=== PATIENT | male | born 1965 | race Caucasian/White ===

== ENCOUNTER 2024-06-19 22:10 | Emergency (ER) | payer BC, OTHER ==
--- NOTE | 2024-06-19 22:48 | EDPHYS ---
Physician Documentation [facility] Name: Forrest Fowler Age: 59 yrs Sex: Male : 1965 Arrival Date: 06/19/2024 Time: 22:10 Bed 4 Private MD: ED Physician Yan Arauz HPI: 06/20 00:15 This 59 yrs old Male presents to ER via EMS with complaints of Abdominal Pain.dr5 00:15 The patient presents with abdominal distention umbilical area. Onset: The dr5 symptoms/episode began/occurred acutely. Patient is a 59-year-old male with history of kidney cancer, hypertension, and ventral hernia coming in today with abdominal pain with nausea and vomiting when hernia came out when he sat up at home. Patient came in by EMS who gave pain medication and successfully reduced hernia.. Historical: - Allergies: 06/19 22:23 No Known Allergies; dd2 - PMHx: 22:23 Hypertensive disorder; hernia; kidney cancer; dd2 - PSHx: 22:23 Lt kidney removed; Colon resection; dd2 - Immunization history:: Adult Immunizations up to date. - Infectious Disease History:: Denies. - Social history:: Smoking status: Patient denies any tobacco usage or history of. ROS: 06/20 00:15 Constitutional: as per hpi dr5 Exam: 00:15 Constitutional: This is a well developed, well nourished patient who is awake, alert, dr5 and in no acute distress. Head/Face: Normocephalic, atraumatic. Eyes: Pupils equal round and reactive to light, extra-ocular motions intact. Lids and lashes normal. Conjunctiva and sclera are non-icteric and not injected. Cornea within normal limits. Periorbital areas with no swelling, redness, or edema. ENT: Nares patent. No nasal discharge, no septal abnormalities noted. Tympanic membranes are normal and external auditory canals are clear. Oropharynx with no redness, swelling, or masses, exudates, or evidence of obstruction, uvula midline. Mucous membranes moist. Chest/axilla: Normal chest wall appearance and motion. Nontender with no deformity. No lesions are appreciated. Cardiovascular: Regular rate and rhythm with a normal S1 and S2. Normal PMI, no JVD. No pulse deficits. Respiratory: Lungs have equal breath sounds bilaterally, clear to auscultation. No rales, rhonchi or wheezes noted. No increased work of breathing, no retractions or nasal flaring. Back: No spinal tenderness. No costovertebral tenderness. Full range of motion. Skin: Warm, dry with normal turgor. Normal color with no rashes, no lesions, and no evidence of cellulitis. MS/ Extremity: Pulses equal, no cyanosis. Neurovascular intact. Full, normal range of motion. Neuro: Awake and alert, GCS 15, oriented to person, place, time, and situation. Cranial nerves II-XII grossly intact. Motor strength 5/5 in all extremities. Sensory grossly intact. Cerebellar exam normal. Normal gait. 00:15 Abdomen/GI: Inspection: abdomen appears normal, Bowel sounds: normal, Palpation: abdomen is soft and non-tender, in all quadrants, Hernia: noted in the umbilical area, incarceration, is not appreciated, tenderness, is not appreciated, bowel sounds are appreciated on auscultation, Vital Signs: 06/19 22:20 BP 143 / 96; Pulse 80; Resp 16; Temp 98.4(O); Pulse Ox 100% ; Pain 4/10; dd2 22:21 BP 136 / 102; Pulse 80; Resp 18; Temp 97.9(O); Pulse Ox 100% on R/A; Weight 72.57 kg; oe Height 5 ft. 11 in. ; 23:00 BP 134 / 86; Pulse 82; Resp 16; Temp 98.3; Pulse Ox 100% ; Pain 1/10; dd2 22:21 Body Mass Index 22.32 (72.57 kg, 180.34 cm) oe 22:20 Pain Scale: Adult dd2 23:00 Pain Scale: Adult dd2 MDM: 22:47 Medical Screening Exam initiated dr5 06/20 00:15 Differential diagnosis: Ventral hernia, incarcerated versus obstructed hernia. Data dr5 reviewed: vital signs, nurses notes. Care significantly affected by the following chronic conditions: Hypertension, Cancer. Care significantly affected by the following Social Determinants of Health: Poor access to healthcare and/or lack of insurance, Poor access to transportation, Problems related to employment. Counseling: I had a detailed discussion with the patient and/or guardian regarding the historical points, exam findings, and any diagnostic results supporting the discharge/admit diagnosis, the need for outpatient follow up, for definitive care, a family practitioner, a general surgeon, to return to the emergency department if symptoms worsen or persist or if there are any questions or concerns that arise at home. ED course: Upon my initial assessment patient was not in pain and had fully reduced hernia. Patient denies any nausea or vomiting. [place] and will follow-up with general surgery when he gets home. Discussed splinting when coughing, sneezing, or getting up. Patient verbalized understanding and will return to ER if pain returns and not able to reduce hernia. All questions answered.. Administered Medications: No medications were administered Disposition: 02:12 Co-signature as Attending Physician, Yan Arauz MD I agree with the assessment sp4 and plan of care. I reviewed the patient's care provided by the Advanced Practice Provider and agree with the diagnosis and treatment plan. Disposition Summary: 06/19/24 22:47 Discharge Ordered Notes: Location: Home dr5 Condition: Stable dr5 Diagnosis - Ventral hernia without obstruction or gangrene dr5 Followup: dr5 - With: Emergency Department - When: As needed - Reason: Worsening of condition Followup: dr5 - With: Private Physician - When: 1 - 2 days - Reason: Recheck today's complaints, Continuance of care, Re-evaluation by your physician Discharge Instructions: - Discharge Summary Sheet dr5 - Hernia, Adult dr5 Forms: - Medication Reconciliation Form dr5 - Patient Portal Instructions dr5 - Leadership Thank You Letter dr5 Signatures: Yan Arauz MD MD sp4 SHANNAN LEONARDO RN RN dd2 Steve Oh, LEAD [employer]PPLY WORKER-C [employer] WORKER-Cdr5
--- NOTE | 2024-06-19 22:48 | ER ---
Nurse's Notes [facility] Name: Forrest Fowler Age: 59 yrs Sex: Male : 1965 Arrival Date: 06/19/2024 Time: 22:10 Bed 4 Private MD: Diagnosis: Ventral hernia without obstruction or gangrene Presentation: 06/19 22:20 Chief complaint: EMS states: toned out for abdominal hernia pain, nausea and vomiting. dd2 Pt reports hernia became hard and was unable to 'push it back' into place and had some nausea and vomiting. Coronavirus screen: At this time, the client does not indicate any symptoms associated with coronavirus-19. Ebola Screen: No symptoms or risks identified at this time. 22:20 Method Of Arrival: EMS: [facility] dd2 22:23 Initial Sepsis Screen: Does the patient meet any 2 criteria? No. Patient's initial dd2 sepsis screen is negative. Does the patient have a suspected source of infection? No. Patient's initial sepsis screen is negative. Risk Assessment: Do you want to hurt yourself or someone else? Patient reports no desire to harm self or others. Onset of symptoms was June 19, 2024. 22:23 Acuity: GABBY 3 dd2 22:24 Care prior to arrival: Medication(s) given: zofran 8 mg, fentanyl 50 mcg IV initiated. dd2 20 GA, in the left antecubital area. Triage Assessment: 22:24 General: Appears in no apparent distress. uncomfortable, Behavior is calm, cooperative, dd2 appropriate for age. Pain: Complains of pain in umbilical area Pain does not radiate. Pain currently is 4 out of 10 on a pain scale. EENT: No deficits noted. No signs and/or symptoms were reported regarding the EENT system. Neuro: Flores Agitation-Sedation Scale (RASS): 0 - Alert and Calm Level of Consciousness is awake, alert, obeys commands, Oriented to person, place, time, situation, Appropriate for age. Cardiovascular: No deficits noted. Patient's skin is warm and dry. Respiratory: No deficits noted. Airway is patent Respiratory effort is even, unlabored, Respiratory pattern is regular, symmetrical, Breath sounds are clear bilaterally. GI: Abdomen is distended, Bowel sounds present X 4 quads. Abdomen is tender to palpation in umbilical area Mass noted in umbilical area Reports nausea, vomiting, umbilical pain. : No deficits noted. No signs and/or symptoms were reported regarding the genitourinary system. Derm: No deficits noted. No signs and/or symptoms reported regarding the dermatologic system. Musculoskeletal: No deficits noted. No signs and/or symptoms reported regarding the musculoskeletal system. Circulation, motion, and sensation intact. Range of motion: intact in all extremities. Historical: - Allergies: 22:23 No Known Allergies; dd2 - PMHx: 22:23 Hypertensive disorder; hernia; kidney cancer; dd2 - PSHx: 22:23 Lt kidney removed; Colon resection; dd2 - Immunization history:: Adult Immunizations up to date. - Infectious Disease History:: Denies. - Social history:: Smoking status: Patient denies any tobacco usage or history of. Screenin:28 [facility] ED Fall Risk Assessment (Adult) History of falling in the last 3 months, dd2 including since admission No falls in past 3 months (0 pts) Confusion or Disorientation No (0 pts) Intoxicated or Sedated No (0 pts) Impaired Gait No (0 pts) Mobility Assist Device Used No (0 pt) Altered Elimination No (0 pt) Score/Fall Risk Level 0 - 2 = Low Risk Oriented to surroundings, Maintained a safe environment, Educated pt \T\ family on fall prevention, incl call for assistance when getting out of bed, Assessed \T\ reinforced patient's understanding of fall precautions, Hourly rounding (assess needs \T\ fall precautionary measures) done. Abuse screen: Denies threats or abuse. Nutritional screening: No deficits noted. Tuberculosis screening: No symptoms or risk factors identified. Assessment: 22:27 Reassessment: See triage assessment for full assessment. dd2 Vital Signs: 22:20 BP 143 / 96; Pulse 80; Resp 16; Temp 98.4(O); Pulse Ox 100% ; Pain 4/10; dd2 22:21 BP 136 / 102; Pulse 80; Resp 18; Temp 97.9(O); Pulse Ox 100% on R/A; Weight 72.57 kg; oe Height 5 ft. 11 in. ; 23:00 BP 134 / 86; Pulse 82; Resp 16; Temp 98.3; Pulse Ox 100% ; Pain 1/10; dd2 22:21 Body Mass Index 22.32 (72.57 kg, 180.34 cm) oe 22:20 Pain Scale: Adult dd2 23:00 Pain Scale: Adult dd2 ED Course: 22:15 Patient arrived in ED. rv1 22:18 SHANNAN LEONARDO RN is Primary Nurse. dd2 22:23 Triage completed. dd2 22:24 Arm band placed on right wrist. Patient placed in an exam room, on a stretcher, on dd2 pulse oximetry. 22:28 Patient has correct armband on for positive identification. Bed in low position. Call dd2 light in reach. Side rails up X2. Client placed on continuous cardiac and pulse oximetry monitoring. NIBP monitoring applied. Door closed. Noise minimized. Warm blanket given. Pillow given. Verbal reassurance given. 22:28 No provider procedures requiring assistance completed. Maintain EMS IV. Dressing dd2 intact. Good blood return noted. Site clean \T\ dry. Gauge \T\ site: 20g LAC. Flushed with 10 mL NS IV is patent, is intact, with fluids infusing freely, with good blood return. Patient maintains SpO2 saturation greater than 95% on room air. 22:37 Steve Oh FNP-C [facility]. dr5 22:38 Yan Arauz MD is Attending Physician. dr5 23:00 Provided Education on: D/C EDUCATION. dd2 23:00 IV discontinued, intact, bleeding controlled, No redness/swelling at site. Pressure dd2 dressing applied. Administered Medications: No medications were administered Medication: 22:29 VIS not applicable for this client. dd2 Outcome: 22:47 Discharge ordered by . dr5 23:00 Discharged to home ambulatory, dd2 23:00 Condition: improved 23:00 Discharge instructions given to patient, Instructed on discharge instructions, follow up and referral plans. Demonstrated understanding of instructions, follow-up care, 23:02 Patient left the ED. dd2 Signatures: Cheng Lucero Rebecca rv1 SHANNAN LEONARDO RN RN dd2 Steve Oh FNP-C [employer]-Cdr5
[2024-06-19 23:07] VITALS: O2SAT 100
[2024-06-19 23:10] VITALS: BP 134/86; TEMP 98.3
== END 2024-06-19 23:02 | disposition home or self-care (01) ==
LOC: ER 22:10
DX: K43.9 Ventral hernia without obstruction or gangrene (principal); I10 Essential (primary) hypertension; R11.2 Nausea with vomiting, unspecified; C64.9 Malignant neoplasm of unspecified kidney, except renal pelvis
CPT/HCPCS: 99284